=== PATIENT | male | born 1980 | race Caucasian/White ===

== ENCOUNTER 2021-08-08 21:05 | Emergency (ER) | payer OTHER, SELFPAY ==
[2021-08-08 21:09] VITALS: BP 128/95; PULSE 104; RESP 18; TEMP 36.7; O2SAT 99; BMI 29.5
--- NOTE | 2021-08-08 21:10 | XRR_ITS ---
PROCEDURE INFORMATION: Exam: XR Chest Exam date and time: 08/08/2021 9:10 PM Age: 40 years old Clinical indication: Chest wall pain; Additional info: Cp TECHNIQUE: Imaging protocol: XR of the chest. Views: 1 view. COMPARISON: CR Chest 1 [place] [id number] 03/06/2017 2:04 PM FINDINGS: Lungs: Unremarkable. No consolidation. Pleural spaces: Unremarkable. No pleural effusion. No pneumothorax. Heart/Mediastinum: Unremarkable. No cardiomegaly. Bones/joints: Unremarkable. XR/XR chest 1V portable [id number] IMPRESSION: No acute findings.
--- NOTE | 2021-08-08 21:10 | ECG_ITS ---
[facility] Test Date: 2021-08-08 Pat Name: Fernando Franks Department: Room: Gender: Male Vp & General Counsel: : 1980 Requested By: Mitzi Moses Order Number: [id number] Darlene MD: Conrado Garcia M.D. Measurements Intervals [place] Rate: 91 P: 44 AR: 183 QRS: 17 QRSD: 93 T: 21 QT: 329 QTc: 406 Interpretive Statements SINUS RHYTHM NONSPECIFIC T-WAVE ABNORMALITY No previous ECG available for comparison Electronically Signed On 08-10-2021 12:15:18 GREENHOUSE TECHNICIAN by Conrado Garcia M.D. [id number]
--- NOTE | 2021-08-08 21:12 | ED_ITS ---
HPI - Chest Pain General: Chief Complaint: Arrhythmia/Palpitations Stated Complaint: heart flutter Time Seen by Provider: 08/08/21 21:05 Source: patient and EMS Mode of arrival: EMS Limitations: no limitations History of Present Illness: 40-year-old male has a history of anxiety states that roughly 2 hours ago he started feeling a little flushed and folic his heart was racing he states that he has an apple watch and he was checking his heart rate and kept saying the 130s and 140s because any became concerned and little anxious as well. States he had many episodes like this in the past but this 1 lasted few hours and has not really resolved. He states he is feeling improved now heart rates in the 90s states he is having some pressure pain with his palpitations it was a 2 out of 10 denies any shortness of breath denies any worst improving factors. Associated symptoms: Reports palpitations; Deny abdominal pain, dyspnea, fever(s), nausea or vomiting Review of Systems Const: Denies: fever(s), chills, body aches or change in appetite Eyes: Denies: blurry vision or eye discomfort ENMT: Denies: throat pain or dental pain Card: Reports: chest pain and palpitations Resp: Denies: dyspnea GI: Denies: abdominal pain, nausea, vomiting or diarrhea : Denies: dysuria Musc: Denies: neck pain or back pain Skin/Breast: Denies: rash Neuro: Denies: headache(s) Psych: Denies: depression Imer/Lymph: Denies: easy bruising All/Imm: Denies: urticaria PFS ED PFSH: Medical History (Updated 08/08/21 @ 22:12 by Mitzi Moses MD) Anxiety Social History (Updated 08/08/21 @ 21:13 by Mitzi Moses MD) Substance/Drug Use: never Physical Exam Const: COMMON NORMALS: no acute distress, patient oriented x3 and healthy appearing GENERAL APPEARANCE: anxious HENMT: COMMON NORMALS: normocephalic and atraumatic HEAD & SCALP: normocephalic and atraumatic Eye: COMMON NORMALS: Equal, round and reactive pupils present and EOMs intact bilaterally PUPIL: Yes Equal, round and reactive pupils present Neck/C-Spine: COMMON NORMALS: full ROM and supple Chest: COMMONS NORMALS: normal inspection of the chest and normal palpation of entire chest wall Resp: COMMON NORMALS: normal respiratory effort, No retractions, No use of accessory muscles and clear to auscultation bilaterally AUSCULTATION: clear to auscultation bilaterally Cardio: COMMON NORMALS: regular rhythm and No murmurs present (Cardio) RATE: tachycardic RHYTHM: regular rhythm GI: COMMON NORMALS: Normal to inspection, nondistended, normoactive bowel sounds present, Soft to palpation, non-tender and no masses PALPATION: Yes Soft to palpation Extremity: COMMON NORMALS: normal to inspection and full ROM Neuro: COMMON NORMALS: patient oriented x3, moves all extremities and no focal motor deficits Psych: COMMON NORMALS: mental status grossly normal, Normal thought process present and cooperative THOUGHT PROCESS: Normal thought process present Skin: COMMON NORMALS: no rashes or lesions noted and no wounds GENERAL SKIN EXAM: no rashes or lesions noted Course Vital Signs: Vital signs: Vital Signs Temperature 98.1 F 08/08/21 21:09 Pulse Rate 104 H 08/08/21 21:09 Respiratory Rate 18 08/08/21 21:09 Blood Pressure 128/95 08/08/21 21:09 Pulse Oximetry 99 08/08/21 21:09 MDM - Chest Pain Medical Decision Making Patient presents here with palpitations likely due to anxiety states he feels much improved here after Ativan. Initial troponin is normal he has no signs of acute coronary syndrome do not believe a need to do a 2-hour his EKG here is normal he is stable for discharge is to follow-up with PCP and return if worsening. Lab Data : 08/08/21 21:16 08/08/21 21:16 Radiology Impressions Chest X-Ray 08/08/21 21:10 IMPRESSION: No acute findings. Laboratory Results WBC 12.9 10^3/uL (4.0-10.0) H 08/08/21 21:16 RBC 5.44 10^6/uL (4.1-5.3) H 08/08/21 21:16 Hgb 14.5 g/dL (11.7-16.6) 08/08/21 21:16 Hct 43.1 % (42.0-52.0) 08/08/21 21:16 MCV 79.2 fl (80-94) L 08/08/21 21:16 MCH 26.7 pg (28.0-34.0) L 08/08/21 21:16 MCHC 33.6 g/dL (30.0-36.0) 08/08/21 21:16 RDW 13.5 % (12.1-15.1) 08/08/21 21:16 Plt Count 254 10^3/cmm (130-400) 08/08/21 21:16 MPV 10.2 fL (7.4-10.4) 08/08/21 21:16 Neut % (Auto) 72.4 % 08/08/21 21:16 Lymph % (Auto) 17.3 % 08/08/21 21:16 Hinds % (Auto) 7.6 % 08/08/21 21:16 Eos % (Auto) 1.7 % 08/08/21 21:16 Baso % (Auto) 0.6 % 08/08/21 21:16 Neut # (Auto) 9.30 10^3/uL (1.8-7.7) H 08/08/21 21:16 Lymph # (Auto) 2.2 10^3/uL (0.8-4.8) 08/08/21 21:16 Hinds # (Auto) 1.0 10^3/uL (0.2-0.9) H 08/08/21 21:16 Eos # (Auto) 0.2 10^3/uL (0.0-0.8) 08/08/21 21:16 Baso # (Auto) 0.1 10^3/uL (0.0-0.1) 08/08/21 21:16 Nucleated RBC % (auto) 0 % 08/08/21 21:16 Nucleated RBCs # 0.0 /100WBC 08/08/21 21:16 Sodium 135 mmol/L (136-145) L 08/08/21 21:16 Potassium 3.3 mmol/L (3.5-5.1) L 08/08/21 21:16 Chloride 101 mmol/L (98-107) 08/08/21 21:16 Carbon Dioxide 21 mmol/L (22-29) L 08/08/21 21:16 Anion Gap 16.3 (5-19) 08/08/21 21:16 BUN 14 mg/dL (6-20) 08/08/21 21:16 Creatinine 0.9 mg/dL (0.7-1.2) 08/08/21 21:16 GFR Calculation 94.4 mL/min (90-130) 08/08/21 21:16 Glucose 105 mg/dL (65-115) 08/08/21 21:16 Calculated Osmolality 281 mOsm/kg (285-295) L 08/08/21 21:16 Calcium 9.2 mg/dL (8.5-10.5) 08/08/21 21:16 Total Bilirubin 0.8 mg/dL (0.15-1.2) 08/08/21 21:16 AST 18 U/L (0-40) 08/08/21 21:16 ALT 19 U/L (0-41) 08/08/21 21:16 Alkaline Phosphatase 97 IU/L (40-130) 08/08/21 21:16 Troponin T Baseline 6 ng/L (0-15) 08/08/21 21:16 Total Protein 7.2 g/dL (6.6-8.7) 08/08/21 21:16 Albumin 4.8 g/dL (3.5-5.2) 08/08/21 21:16 Globulin 2.4 g/dL (1.3-4.6) 08/08/21 21:16 EKG Data EKG 1: I personally reviewed and interpreted this EKG as follows: EKG interpretation date: 08/08/21 EKG interpretation time: 21:14 Interpretation: nsr hr [address] or t wave abnormalities qrs 93 qtc 378 Discharge Plan Discharge Patient Disposition: Home Clinical Impression: Chest pain, Anxiety Discharge Orders: Discharge ED (Routine); Ordered 08/08/21 Ordered By: Mitzi Moses Referrals: Lakesha Carrizales MD [Referring] - 1-3 days Discharge Diet: Advance as tolerated Discharge Activity: Resume usual activity Patient Instructions: Chest Pain (ED) Coding Level of Care Code ED Director Of Teacher Education for Chg Fwd Exam Comprehensive
[2021-08-08 21:29] LABS: Basophils # 0.1 10^3/uL (0.0-0.1); Basophils % 0.6 %; Eosinophils # 0.2 10^3/uL (0.0-0.8); Eosinophils % 1.7 %; Hematocrit 43.1 % (42.0-52.0); Hemoglobin 14.5 g/dL (11.7-16.6); Lymphocytes # 2.2 10^3/uL (0.8-4.8); Lymphocytes % 17.3 %; Mean Corpuscular HGB Conc 33.6 g/dL (30.0-36.0); Mean Corpuscular Hemoglobin 26.7 pg (28.0-34.0); Mean Corpuscular Volume 79.2 fl (80-94); Mean Platelet Volume 10.2 fL (7.4-10.4); Monocytes % 7.6 %; Neutrophils % 72.4 %; Nucleated Red Blood Cells % 0 %; Platelet Count 254 10^3/cmm (130-400); Red Blood Count 5.44 10^6/uL (4.1-5.3); Red Cell Distribution Width 13.5 % (12.1-15.1); White Blood Count 12.9 10^3/uL (4.0-10.0)
[2021-08-08] MEDS: LORazepam 2 mg/mL INJ 1 mL 1 MG IVP (21:35)
--- NOTE | 2021-08-08 21:37 | PC.NURSE ---
Pt. states that he has history of anxiety and that he was watching his smartwatch alot and this may have caused it to worsen.
[2021-08-08 21:51] LABS: Troponin(5th) Baseline 6 ng/L (0-15)
[2021-08-08 21:52] LABS: Alanine Aminotransferase 19 U/L (0-41); Albumin Level 4.8 g/dL (3.5-5.2); Alkaline Phosphatase 97 IU/L (40-130); Anion Gap 16.3 (5-19); Aspartate Amino Transferase 18 U/L (0-40); Blood Urea Nitrogen 14 mg/dL (6-20); Calcium 9.2 mg/dL (8.5-10.5); Carbon Dioxide 21 mmol/L (22-29); Chloride 101 mmol/L (98-107); Globulin 2.4 g/dL (1.3-4.6); Glomerular Filtration Rate 94.4 mL/min (90-130); Glucose 105 mg/dL (65-115); Osmolality Calculated 281 mOsm/kg (285-295); Potassium 3.3 mmol/L (3.5-5.1); Sodium 135 mmol/L (136-145); Total Bilirubin 0.8 mg/dL (0.15-1.2); Total Protein 7.2 g/dL (6.6-8.7)
== END 2021-08-08 22:24 | disposition home or self-care (01) ==
PROVIDERS: Emergency Provider Emergency Medicine
DX: R07.9 Chest pain, unspecified (principal); F41.9 Anxiety disorder, unspecified
CPT/HCPCS: 71045; 80053; 84484; 85025; 93005; 96374; 99283; J2060

== ENCOUNTER 2022-04-27 12:15 | Outpatient (CLI) | payer OTHER, SELFPAY ==
[2022-04-27 12:26] VITALS: BMI 29.4
--- NOTE | 2022-04-27 12:28 | ECG_ITS ---
[facility] Test Date: 2022-04-27 Pat Name: Fernando Franks Department: Room: Gender: Male Global Technical Writer: : 1980 Requested By: Maritza Ochoa Order Number: [id number] Darlene MD: Maritza Ochoa M.D. Interpretive Statements NAME OF STUDY: TREADMILL STRESS ECHOCARDIOGRAM INDICATION: Chest Pain; Shortness of Breath PROCEDURE: At the baseline, the patient's blood pressure was 133/93 mm Hg with a heart rate of 80 bpm and oxygen saturation of 96%. The baseline electrocardiogram showed normal sinus rhythm with normal axis with non specific T wave changes. The patient exercised for 10 minutes and 17 seconds on a [standard Garcia protocol]. Patient attained a maximum heart rate of 168 beats per minute( 92 % of the maximum predicted heart rate) with a blood pressure at the peak exercise of 202/113 mm Hg and oxygen saturation of 98%. The EKG at the peak exercise revealed no significant ST-T wave changes. Patient did [not have any chest pain or any significant EKG changes with the exercise. During the recovery phase, there were no new changes. Blood pressure at the end of the recovery phase was 133/76 mm Hg with a heart rate of 97 beats per minute and oxygen saturation of 97%. Echocardiographic pictures were taken at the baseline, immediately following the peak exercise and during the recovery phase. CONCLUSION: 1. Normal EKG response to treadmill exercise. 2. No exercise-induced chest pain or cardiac arrhythmia. 3. Excellent exercise tolerance, attained a maximum of 13.5 METs. 4. Please see separate report for the echocardiographic response to exercise. Electronically Signed On 05-07-2022 13:08:25 SPECIAL INVESTIGATOR by Maritza Ochoa M.D. [id number]
--- NOTE | 2022-04-27 12:38 | USCV_ITS ---
Fernando Franks Age: 41 Gender: M : 1980 Exam Date: 04/27/2022 12:46 Ordering Phys: Maritza Ochoa MD ([email or web address]) Technologist: Mann Alvarez Exam Location: [facility] [place] Indication: Chest pain, shortness of breath Rhythm: Sinus Patient History: HTN, PALPITATIONS, FORMER SMOKER--NOW VAPING Cardiac Medications: CCB, BB, ASA, LONG ACTING NITRATE Medications in past 24 hours: NONE Contrast: Stress Results Protocol: Garcia Total dose(mL): Exercise Duration (min:sec): 10:17 METS: 13.5 Resting HR: 80 Resting BP: 133 / 93 Peak HR: 168 Peak BP: 202 / 131 Max Predicted HR: 181 93 % Max Predicted HR Target HR: 154 Double Product: [id number] Stress Summary: BP Response: NORMAL Reason for Termination: TARGET HR REACHED Cardiac Symptoms: SOB ECG Analysis Resting ECG: Stress ECG: Arrhythmia: MEASUREMENTS (Male/Female) Normal Values FINDINGS PROCEDURE: At the baseline, the patient's blood pressure was 133/93 mmHg with a heart rate of 80 bpm. The patient exercised for 10 minutes and 17 seconds on a standard Garcia protocol. Patient attained a maximum heart rate of 168 beats per minute( 93 % of the maximum predicted heart rate) with a blood pressure at the peak exercise of 202/131 mm Hg. During the recovery phase, there were no new changes. Echocardiographic pictures were taken at the baseline, immediately following the peak exercise and during the recovery phase. Baseline echocardiogram: Normal left ventricular size and systolic function with ejection fraction estimated at 60 %. No regional wall motion abnormalities. Normal right ventricle size and systolic function. Normal left and right atrial size. No pericardial effusion. No intracardiac masses. Peak exercise echocardiogram: Normal augmentation of left ventricular systolic function with exercise. No new regional wall motion abnormalities. Recovery echocardiogram: Left ventricular systolic function normalizes. No regional wall motion abnormalities. CONCLUSIONS 1. This is a treadmill stress echocardiogram. 2. Patient exercised for 10 minutes and 17 seconds. Excellent exercise tolerance, attained a maximum of 13.5 METs. Double product of 33,937. 3. Normal blood pressure and heart rate response to exercise. 4. Normal echocardiographic response to exercise. 5. Please see separate report for the EKG portion of the study. Maritza Ochoa MD (Electronically Signed) Final Date: 07 May 2022 13:35 S
[2022-04-27 13:22] VITALS: BP 133/76; PULSE 98
== END 2022-04-27 12:16 | disposition home or self-care (01) ==
LOC: CDL 12:18
PROVIDERS: PCP Family Medicine; Visit Provider Internal Medicine Cardiovascular Disease
DX: R07.9 Chest pain, unspecified (principal); R06.02 Shortness of breath
CPT/HCPCS: 93017; 93350; 93352